=== PATIENT | female | born 1990 | race Hispanic/Latino ===

== ENCOUNTER 2020-03-06 16:40 | Emergency (ER) | payer OTHER ==
[2020-03-06 17:13] LABS: #Basophils 0.1 thou/uL (0.0-0.2); #Eosinphils 0.1 thou/uL (0.0-0.7); #Lymphocytes 2.3 thou/uL (1.20-3.40); #Monocytes 0.4 thou/uL (0.11-0.59); #Neutrophils 6.6 thou/uL (1.40-6.50); %Basophils 0.9 % (0.0-1.0); %Eosinophils 0.9 % (0.0-10.0); %Lymphocytes 23.8 % (21.0-51.0); %Monocytes 4.6 % (0.0-10.0); %Neutrophils 69.7 % (42.0-75.0); Hemoglobin 14.3 g/dL (12.0-16.0); Mean Corpuscular HGB CONC 33.7 g/dL (32.0-36.0); Mean Corpuscular Hemoglobin 28.6 pg (27.0-31.0); Mean Corpuscular Volume 84.9 fL (78.0-98.0); Mean Platelet Volume 7.8 fL (7.4-10.4); Platelet Count 287 thou/uL (130-400); RBC Distribution Width 13.2 % (11.5-14.5); Red Blood Cell (RBC) Count 5.02 mill/uL (4.20-5.40); White Blood Cell (WBC) Count 9.5 thou/uL (4.8-10.8)
[2020-03-06 17:37] LABS: ALT (SGPT) 24 U/L (8-55); AST (SGOT) 12 U/L (5-34); Alkaline Phosphatase 79 U/L (40-110); Anion Gap 13 mmol/L (10-20); BUN (Urea Nitrogen) 8 mg/dL (7.0-18.7); Bilirubin, Total 0.2 mg/dL (0.2-1.2); Calc. Creatinine Clearance 0 mL/min (70-130); Calcium 9.5 mg/dL (7.8-10.44); Carbon Dioxide 24 mmol/L (22-29); Chloride 103 mmol/L (98-107); Estimated GFR-MDRD Greater than 90; Globulin 3.7 g/dL (2.4-3.5); Glucose 86 mg/dL (70-105); Potassium 3.7 mmol/L (3.5-5.1); Protein, Total 7.7 g/dL (6.0-8.3); Sodium 136 mmol/L (136-145)
[2020-03-06] MEDS ORDERED: Acetaminophen 500 MG TAB ONE (20:20)
[2020-03-06] MEDS ORDERED: Ondansetron PF 4 MG/2 ML Vial ONE (20:42)
[2020-03-06 20:44] LABS: Bacteria/HPF None Seen HPF (None Seen); Bilirubin Negative (Negative); Blood, Urine Negative (Negative); Clarity Clear (Clear); Glucose, Urine (Dipstick) Normal (Negative); Leukocyte 250 Leu/uL (Negative); Nitrite Negative (Negative); Protein, Urine (Dipstick) 20 mg/dL (Neg-Trace); RBC/HPF 0-3 HPF (0-3); Urobilinogen Normal mg/dL (Less than 2)
== END 2020-03-06 21:54 | disposition home or self-care (01) ==
LOC: ERS 16:40
DX: O21.0 Mild hyperemesis gravidarum (principal); Z3A.09 9 weeks gestation of pregnancy; O99.511 Diseases of the respiratory system complicating pregnancy, first trimester
CPT/HCPCS: 36415; 80053; 81003; 81015; 84702; 85025; 86900; 86901; 96361; 96374; J2405

== ENCOUNTER 2020-06-09 23:46 | Day surgery (SDC) | payer OTHER ==
[2020-06-10 00:05] VITALS: BMI 37.5
[2020-06-10] MEDS ORDERED: hydrALAZINE 20 MG/ML VIAL SLOW IVP PRN (00:30)
--- NOTE | 2020-06-10 00:34 | PDOC.BPN ---
- Brief Progress Note Encounter Date: 06/10/20 Encounter Time: 00:30 OBGYN Attending Patient seen by me Please see full resident note Patient is a 29 yo (2 term deliveries and 1 delivery at 23 weeks...demised). here fo pink dsch with wipening. No active VB, no LOF, no feveres, had sex last 24 hrs. Good FM, no fevers. Past Medical Hx: none Past Surgical HX: none MEDS: Progesterone weekly IM Allergy: none OB HX: 2 SVDs with one joey-viable loss PHYSICAL: VSS afebrile NAD no evidence LOF No VB FHTs 1402, no CTX Assesment and plan: Possible postcoital dsch...will do full eval based on HX: 1. TVUS CX length 2. as screen although I do not suspect LOF 3. Continue progesterone if DC's home
--- NOTE | 2020-06-10 00:44 | PDOC.FPROB ---
FMR OB H&P: HPI - History of Present Illness Chief Complaint: pink discharge Indentification: 29 yo at 23.0 wga History of Present Illness: Patient here complaining of pink discharge at approximately 23:30 last night after having intercourse. She noticed it on toilet paper and denies drops of blood into toilet or passing clots. Had some mild cramping which have resolved. Otherwise, no other loss of fluid. Primary Care Physician: RUBA Banerjee FMR OB H&P: Current - Care : 5 Para: 2111 Gestational age: 23.0 Due date: 10/07/2020 Course/Complications: On IM progesterone, hx of IUFD at 23.0 wga - OB Labs Blood type: unknown RH: unknown Antibody Screen: unknown HIV: unknown RPR: unknown HepBsAg: unknown Quad screen: unknown Gonorrhea: unknown Chlamydia: unknown GBS: unknown FMR OB H&P: History - Past Medical History PMH: Asthma - OB History OB History: 2 vaginal deliveries at term. 1 IUFD at 23 wga 1 SAB at 10 wks - V[employer] ARTIST History V[employer] ARTIST History: Denies STIs. - Surgical History Sx History: D&C after SAB. - Social History Social History: Denies smoking, drinking, drugs. - Family History Family History: On her mother's side: hypothyroidism, diabetes, HTN FMR OB H&P: Medications - Current Allergies/Adverse Reactions: Allergies Allergy/AdvReac Type Severity Reaction Status Date / Time No Known Drug Allergies Allergy Verified 06/10/20 00:05 FMR OB H&P: ROS - Review of Systems General: denies: fever/chills, fatigue Eyes: denies: vision changes ENT: denies: nasal congestion, sore throat Cardiovascular: denies: chest pain, edema Respiratory: denies: cough, shortness of breath Gastrointestinal: reports: nausea, vomiting. denies: abdominal pain, diarrhea Genitourinary (Female): reports: vaginal discharge. denies: dysuria, contractions Musculoskeletal: denies: pain Neurologic: denies: weakness Integumentary: denies: rash Hematologic/Lymphatic: denies: prolonged or excessive bleeding Psychological: denies: depression, anxiety FMR OB H&P: Vital Signs - Maternal Vital signs: BP 113/82 HR 86 Temp 98.2 F - Heart Tones Baseline: 140 (doppler) FMR OB H&P: Physical Exam - Physical Exam General: NAD, awake, alert and oriented HEENT: normocephalic and atraumatic, MMM, no scleral icterus, grossly normal vision, grossly normal hearing Heart: RRR, normal S1/S2, no murmurs/rubs/gallops General: CTAB, no respiratory distress Abdomen: soft, gravid, non-tender Neurological: no focal deficit Skin: no rash Lymphatic: no unusual bruising or bleeding Psychiatric: intact recent and remote memory, normal mood and affect FMR OB H&P: A/P - Problem List (1) High risk due to history of labor Current Visit: No Status: Acute Code(s): O09.219 - SUPRVSN OF PREG W HISTORY OF PRE-TERM LABOR, UNSP TRIMESTER Qualifiers: Trimester: third trimester Qualified Code(s): O09.213 - Supervision of with history of pre-term labor, third trimester Comment: Patient presented in labor at term, progressing well, status post AROM with clear fluid. Continue current management. (2) Intrauterine normal Current Visit: No Status: Acute Code(s): Z34.90 - ENCNTR FOR SUPRVSN OF NORMAL , UNSP, UNSP TRIMESTER Qualifiers: Trimester: third trimester Qualified Code(s): Z34.93 - Encounter for supervision of normal , unspecified, third trimester Disposition: await TVUS results and amnisure. Discussion: Date/Time: 06/10/20 0041 29 yo at 23.0 wga [place] discharge - history of IUFD at 23 wks - likely postcoital - however, will assess cervical length w/ TVUS - Amnisure pending - if amnisure negative and TVUS w/ normal cervical length, will d/c home. This H&P was discussed with Dr. Schreiber, who agrees with the above documentation and plan. Signature: Elsa Acuna MD PGY2
[2020-06-10 02:04] LABS: Amnisure Internal Control QC ACCEPTABLE (ACCEPTABLE)
[2020-06-10 02:13] LABS: Amnisure Test No Membranes Rupture (No Rupture)
--- NOTE | 2020-06-10 02:40 | PDOC.BPN ---
- Brief Progress Note Preliminary ultrasound with cervix >3 cm. Amnisure neg. Will d/c home. RTC for f/u w/ PCP. return precautions given.
--- NOTE | 2020-06-10 11:09 | ULT ---
PRELIMINARY REPORT/[facility]/EMERGENCY AFTER HOURS PROCEDURE: EXAM: US Obstetrical, Complete >14 weeks. CLINICAL HISTORY: HX: PINK DISCHARGE AT 23WK, PREVIOUS DELIVERY, EVAL CERVICAL LENGTH. SEE NOTES ON LAST IMAGE. THANKS TECHNIQUE: Transabdominal imaging of the maternal pelvis and a > 14 week gestation with image documentation. COMPARISON: None provided. FINDINGS: FETUS: There is a single living intrauterine gestation, estimated gestational age 22 weeks 5 days POSITION: position is breech. HEART RATE: The heart rate is 135 beats per minute. BIOMETRICS: Based on composite biometry, the estimated gestational age by ultrasound is 22 weeks 5 days. T he estimated weight is 527 g ANATOMIC SURVEY: The visualized anatomy is unremarkable. PLACENTA: The placenta is located posterior. No sonographic evidence for previa or abruption. AMNIOTIC FLUID: Within normal limits. CERVIX: Closed. Unremarkable as visualized. Measures 3.7 cm IMPRESSION: Single viable intrauterine . No acute abnormality. Cervical length of 3.7 cm ELECTRONICALLY SIGNED BY: Saurav Hunt MD Jun 10, 2020 2:12:48 AM CDT This report is intended for review by the ordering physician only, in accordance of law. If you recei ve this report in error, please call [facility] at [phone]. FINAL REPORT OB ULTRASOUND FINDINGS: Viable intrauterine . Cervical length recorded at 3.8 cm. I am in agreement with the preliminary report. POS: AGW
== END 2020-06-10 02:46 | disposition home or self-care (01) ==
LOC: L&D/OP 23:46
PROVIDERS: ATTEND Obstetrics & Gynecology
DX: O99.89 Other specified diseases and conditions complicating pregnancy, childbirth and the puerperium (principal); N89.8 Other specified noninflammatory disorders of vagina; O09.292 Supervision of pregnancy with other poor reproductive or obstetric history, second trimester; O09.212 Supervision of pregnancy with history of pre-term labor, second trimester; Z3A.23 23 weeks gestation of pregnancy
CPT/HCPCS: 76815; 84112

== ENCOUNTER 2020-09-10 15:26 | Day surgery (SDC) | payer OTHER ==
[2020-09-10 15:57] VITALS: BMI 37.0
[2020-09-10] MEDS ORDERED: hydrALAZINE 20 MG/ML VIAL SLOW IVP PRN (16:48)
--- NOTE | 2020-09-10 17:40 | PRG ---
DATE OF SERVICE: 09/10/2020 PRIMARY OB: Deisy Durant CNM CHIEF COMPLAINT: Abdominal pain. HISTORY OF PRESENT ILLNESS: The patient is a 30-year-old, G6, P2 female with an intrauterine at 36 weeks and a day, who is presenting to Labor and Delivery from work after being sent by her employer for abdominal pains. The patient reports that she is having abdominal pains that are contraction like. She is unable to tell me how often they are happening or how long they are occurring. She feels like maybe a minute or two, and at some point in time, she believes they are about 5 minutes apart. The patient denies any vaginal bleeding or leakage of fluid. She denies fever, cough, headache, chest pain, shortness of breath. She reports daily vomiting in the morning. Denies diarrhea or constipation. Denies new rashes, hip problems, knee problems, muscle weakness. Denies vaginal bleeding, leakage of fluid, urinary urgency or frequency. PAST MEDICAL HISTORY: Asthma and anemia. PAST SURGICAL HISTORY: Negative. ALLERGIES: NO KNOWN DRUG ALLERGIES. MEDICATIONS: Albuterol as needed, which she has not taken this . OB LABORATORY DATA: Unavailable at time of dictation. REVIEW OF SYSTEMS: Per HPI. PHYSICAL EXAMINATION: VITAL SIGNS: Blood pressure is 107/63, heart rate of 96, respiratory rate of 18, saturating 99% on room air, and temperature 98.6. GENERAL: She appears to be in no acute distress. She is alert, oriented, cooperative, and pleasant to interact with. HEAD: Normocephalic, atraumatic. LUNGS: Clear to auscultation bilaterally. HEART: Regular rate and rhythm. ABDOMEN: Gravid and soft. She does have some tenderness with deviation of the uterus eliciting the pain that she has been experiencing. At this point, the patient did report that her pains that she has been feeling are worse with activity and movement such as getting up off the floor and bending over. CERVICAL: Per nursing staff is 1, 50, -2 station. DIAGNOSTIC STUDIES: heart tracing shows the fetus with a baseline in the 140s with moderate long-term variability, positive 15 x 15 accelerations, no decelerations. Tocometer shows some irritability, but no identifiable regular contraction pattern. ASSESSMENT AND PLAN: The patient is a 30-year-old, G6, P2 female with an intrauterine at 36 weeks and a day, presenting with abdominal pains. The patient has no evidence of labor. Fetus has a reactive strip and category 1 tracing. The patient is being discharged home. She has instructions to follow up with her primary OB as scheduled. Job ID: [id number]
== END 2020-09-10 17:00 | disposition home health service (06) ==
LOC: L&D/OP 15:26
PROVIDERS: ATTEND Obstetrics & Gynecology
DX: O99.891 Other specified diseases and conditions complicating pregnancy (principal); R10.9 Unspecified abdominal pain; O21.2 Late vomiting of pregnancy; O99.513 Diseases of the respiratory system complicating pregnancy, third trimester; J45.909 Unspecified asthma, uncomplicated; Z3A.36 36 weeks gestation of pregnancy
CPT/HCPCS: 59025; 76815; 99283

== ENCOUNTER 2020-10-02 09:38 | Day surgery (SDC) | payer OTHER ==
[2020-10-02 10:20] VITALS: BP 113/70; TEMP 98.1; BMI 30.8
[2020-10-02] MEDS ORDERED: hydrALAZINE 20 MG/ML VIAL SLOW IVP PRN (10:28)
--- NOTE | 2020-10-02 11:43 | ULT ---
ULTRASOUND BIOPHYSICAL PROFILE: DATE: 10/02/2020 HISTORY: 30-year-old female in third trimester with decreased movement FINDINGS: breathin tone: 2 movement: 2 Amniotic fluid volume: 2 lie: Vertex RONNY: 11 cm heart rate: 127-140 bpm IMPRESSION: Normal biophysical profile score of 8 out of 8, excluding the nonstress test.
--- NOTE | 2020-10-02 12:28 | SS ---
DATE OF ADMISSION: 10/02/2020 DATE OF DISCHARGE: 10/02/2020 LABOR AND DELIVERY TRIAGE NOTE REGULAR PROVIDER: Deisy Durant CNM. EVALUATING PHYSICIAN: Judah Gill MD CHIEF COMPLAINT: Decreased movement reported this morning. HISTORY OF PRESENT ILLNESS: Ms Figueroa is a 30-year-old G6, P2-1-2-2 with an estimated date of confinement of 10/07/2020, who presents after calling [facility] this morning complaining of passing her mucus plug. She was asked at that time whether she was feeling her baby move. She states that she had not felt that this morning, but that it was not unusual for her. She was instructed to go to Labor and delivery right away. She denies ruptured membranes or vaginal bleeding at this time. She endorses movement in Labor and Delivery now. Her care has been with Chanelle Durant. PAST OBSTETRICAL HISTORY: Includes a vaginal delivery at 27 weeks in which that baby . She has had two vaginal deliveries at term since that time, and two spontaneous miscarriages. PAST MEDICAL HISTORY: Includes asthma and anemia. PAST SURGICAL HISTORY: D and C. CURRENT MEDICATIONS: None. ALLERGIES: NO KNOWN ALLERGIES. SOCIAL HISTORY: She denies tobacco, alcohol, or drug use. FAMILY HISTORY: Unremarkable. REVIEW OF SYSTEMS: Denies nausea, vomiting, fever, chills, ruptured membranes, or vaginal bleeding. She presently reports movement here in Labor and Delivery. PHYSICAL EXAMINATION: VITALS: In triage, her vital signs are stable. She is afebrile. GENERAL: She is pleasant and in no acute distress. ABDOMEN: Soft, nontender, and gravid. PELVIC: Deferred. heart rate tracing is reassuring with spontaneous accelerations. No decelerations are seen. No evidence of regular contractions are seen. Biophysical profile is performed and returns 8/8. Her RONNY is 11. ASSESSMENT: 1. A 39 and 2/7th week intrauterine . 2. Reassuring testing here in Labor and Delivery this morning. PLAN: The patient was dismissed to home. The nature of movement was reviewed with her in detail, and kick counts were discussed. She states that she has an appointment with Chanelle Durant this week. Labor precautions were reviewed. Job ID: [id number]
== END 2020-10-02 11:48 | disposition home health service (06) ==
LOC: L&D/OP 09:38
PROVIDERS: ATTEND Obstetrics & Gynecology
DX: O36.8130 Decreased fetal movements, third trimester, not applicable or unspecified (principal); O99.013 Anemia complicating pregnancy, third trimester; D64.9 Anemia, unspecified; O99.513 Diseases of the respiratory system complicating pregnancy, third trimester; J45.909 Unspecified asthma, uncomplicated; O09.213 Supervision of pregnancy with history of pre-term labor, third trimester; O09.293 Supervision of pregnancy with other poor reproductive or obstetric history, third trimester; Z3A.39 39 weeks gestation of pregnancy
CPT/HCPCS: 76819; 99282

== ENCOUNTER 2020-10-03 19:22 | Inpatient (IN) | payer OTHER, SELFPAY ==
[2020-10-03 19:51] VITALS: BMI 36.7
[2020-10-03] MEDS ORDERED: hydrALAZINE 20 MG/ML VIAL SLOW IVP PRN (20:05)
[2020-10-03] MEDS ORDERED: Lidocaine 1% (PF) 30 ML VIAL SC PRN (20:05)
[2020-10-03] MEDS ORDERED: HYDROcodone/Acetaminophen 5/325 mg Tablet PO PRN (20:05)
[2020-10-03] MEDS ORDERED: Misoprostol 200 MCG TAB PR PRN (20:05)
[2020-10-03] MEDS ORDERED: Ondansetron PF 4 MG/2 ML Vial IVP PRN (20:05)
[2020-10-03] MEDS ORDERED: NS / Oxytocin 40 units/1000ml 1,000 ML IV PRN (20:05)
[2020-10-03] MEDS ORDERED: Ibuprofen 800 MG TAB PO PRN (20:05)
[2020-10-03] MEDS ORDERED: Lactated Ringer's 1,000 ML IV SCH (20:15)
[2020-10-03] MEDS ORDERED: Penicillin G Potassium 5 MILL.UNITS in Sodium Chloride 0.9% 100 ML IVPB SCH (20:15)
[2020-10-03] MEDS ORDERED: Butorphanol Tartrate 1 MG/ML VIAL ONE (20:19)
[2020-10-03] MEDS ORDERED: Butorphanol Tartrate 1 MG/ML VIAL SLOW IVP PRN (21:03)
[2020-10-03 21:06] LABS: Hemoglobin 9.8 g/dL (12.0-16.0); Mean Corpuscular HGB CONC 31.7 g/dL (32.0-36.0); Mean Corpuscular Hemoglobin 21.8 pg (27.0-31.0); Mean Corpuscular Volume 68.8 fL (78.0-98.0); Mean Platelet Volume 9.9 fL (7.4-10.4); Platelet Count 276 thou/uL (130-400); RBC Distribution Width 15.7 % (11.5-14.5); Red Blood Cell (RBC) Count 4.51 mill/uL (4.20-5.40); White Blood Cell (WBC) Count 13.4 thou/uL (4.8-10.8)
[2020-10-03 21:37] LABS: Syphilis Antibody Nonreactive (Nonreactive); Syphilis Antibody Index 0.05 S/CO (<1.00 Non-Reactive)
--- NOTE | 2020-10-03 23:41 | PDOC.LDHP ---
Labor and Delivery H&P Chief complaint: contractions HPI: Patient started having painful contractions around 1999. Denies LOF. Affirms movement. no other concerns. Current gestational age (weeks): 39 Due date: 10/07/20 Grav: 6 Para: 3 (2121) OB History Details: 2008 @ 24 week. demise 2014 @ 40 weeks 2015 @ 40 weeks. Current complications: none Abnormal US findings: No Past Medical History: Obesity Current medications: pre- vitamins, other ([place] IM every week until 37 weeks.) Previous surgical history: dilation and curettage Allergies/Adverse Reactions: Allergies Allergy/AdvReac Type Severity Reaction Status Date / Time No Known Drug Allergies Allergy Verified 10/03/20 19:45 Social history: none - Physical Exam Vital signs reviewed and normal: yes General: breathing through contractions Lungs: nonlabored breathing Abdomen: gravid FHT: category 2 [place] contractions every: Q1.5-2 mins - Vaginal Exam cm dilated: 8 Effacement: 100% Station: -1 - OB Labs Blood type: B RH: positive Antibody Screen: negative HIV: negative RPR: negative HEPSAg: negative 1 hour GCT: negative GBS: positive Urine drug screen: negative Rubella: immune - Assessment L&D Assessment: term patient in labor - Plan Plan: admit to L&D, GBS antibiotic prophylaxis, informed consent obtained -: Anticipate
[2020-10-04] MEDS: NS w/ Oxytocin 30 units 500 ML IVPB SCH ×2 (00:05→00:49)
[2020-10-04] MEDS ORDERED: Methylergonovine 0.2 MG TAB ONE (00:09)
--- NOTE | 2020-10-04 00:32 | PDOC.OPDEL ---
OB Operative/Delivery Note Delivery Dr/Surgeon: Bhargav Pre-Delivery Diagnosis: active labor Procedure/Post Delivery Dx: spontaneous vaginal delivery Weeks gestation: 39 Anesthesia: local - Findings A Sex: female Weight: 6 lb 12 oz - 1 min: 8 - 5 min: 9 - Additional Findings/Plan Placenta delivered: spontaneous Repaired Obstetrical Laceration: 2nd degree Estimated blood loss: 1320mL QBL Compilations/Other Findings: PPH. hemorrghaing after delivery. Immediate IV pitocin started. I used bimanual compression until uterotonic were at bedside. Cytotec 800 mcg NM given. Methergine .25mg IM given. Dr. Taylor was paged for back up. Bi manual compression was continued until uterine tone was achieved. An In & Out Cath was used to drain the bladder with approximately 200 ml of urine output. At this time bleeding had slowed. A second IV was started and a stat CBC drawn at the time of IV. Pt was stable. Post delivery plan: routine recovery
[2020-10-04 00:50] LABS: HBSAg Index 0.15 S/CO (0-0.99); Hep B Surf Ag Non-Reactive S/CO (NonReactive)
[2020-10-04] MEDS ORDERED: Penicillin G 2.5 MILL.units 2.5 MILL.UNITS in Premix Bag 1 BAG IVPB SCH (01:00)
[2020-10-04] MEDS ORDERED: HYDROcodone/Acetaminophen 5/325 mg Tablet PO PRN ×2 (01:16)
[2020-10-04] MEDS ORDERED: Methylergonovine 0.2 MG/ML VIAL IM PRN (01:16)
[2020-10-04] MEDS ORDERED: hydrALAZINE 20 MG/ML VIAL SLOW IVP PRN (01:16)
[2020-10-04] MEDS ORDERED: Bisacodyl 10 MG SUPP PR PRN (01:16)
[2020-10-04] MEDS ORDERED: Benzocaine-Menthol 82.5 ML CAN TOP PRN (01:16)
[2020-10-04] MEDS ORDERED: NS / Oxytocin 40 units/1000ml 1,000 ML IV SCH (01:16)
[2020-10-04] MEDS ORDERED: Milk Of Magnesia 30 ML UDCUP PO PRN (01:16)
[2020-10-04 01:39] LABS: SARS-CoV-2 MS2 Positive; SARS-CoV-2 N Gene Negative; SARS-CoV-2 S Gene Negative; SARS-CoV-2 by NAA Not Detected (NotDetected); SARS-CoV-2 orf1ab Negative
[2020-10-04 01:46] LABS: #Lymphocytes 1.2 thou/uL (1.20-3.40); #Monocytes 0.5 thou/uL (0.11-0.59); #Neutrophils 13.5 thou/uL (1.40-6.50); %Basophils 0.1 % (0.0-1.0); %Eosinophils 0.1 % (0.0-10.0); %Monocytes 3.2 % (0.0-10.0); %Neutrophils 88.5 % (42.0-75.0); Hemoglobin 9.9 g/dL (12.0-16.0); Mean Corpuscular HGB CONC 31.1 g/dL (32.0-36.0); Mean Corpuscular Hemoglobin 21.5 pg (27.0-31.0); Mean Corpuscular Volume 68.9 fL (78.0-98.0); Mean Platelet Volume 9.9 fL (7.4-10.4); Platelet Count 282 thou/uL (130-400); RBC Distribution Width 15.6 % (11.5-14.5); Red Blood Cell (RBC) Count 4.62 mill/uL (4.20-5.40); White Blood Cell (WBC) Count 15.2 thou/uL (4.8-10.8)
[2020-10-04] MEDS: Methylergonovine 0.2 MG TAB PO SCH ×6 (05:45→21:37)
[2020-10-04] MEDS: Ibuprofen 800 MG TAB PO SCH ×3 (07:16→21:38)
[2020-10-04] MEDS: Docusate Calcium (SURFAK) 240 MG CAP PO SCH ×2 (07:37→21:37)
[2020-10-04] MEDS: Ferrous Sulfate 325 MG TAB PO SCH ×2 (07:37→17:31)
[2020-10-04] MEDS: Prenatal Vitamin 1 TAB PO SCH (07:37)
[2020-10-04] MEDS ORDERED: Adacel (T-DAP) 0.5 ML SYRINGE IM ONE (09:00)
--- NOTE | 2020-10-04 18:05 | PDOC.PP ---
Post Progress Note Post Day #: 1 Subjective: Pt is doing well. bottle feeding. they will not let infant discharge until Sat. She is feeling well, up to urinate without dizziness or syncope PO intake tolerated: yes Flatus: yes Ambulation: yes Vital Signs (12 hours) Temp Pulse Resp BP Pulse Ox 10/04/20 17:06 98.9 F 90 20 96/51 L 96 10/04/20 12:02 98.7 F 91 20 107/60 98 10/04/20 08:24 98.9 F 82 20 103/56 L 98 Weight Weight 188 lb - Physical Examination General: NAD Respiratory: non-labored breathing Skin: no rash Neurological: no gross focal deficits Psychiatric: A&Ox3, normal affect Result Diagrams: 10/04/20 01:19 Additional Labs: Post Labs Hep Bs Antigen Non-Reactive S/CO (NonReactive) 10/03/20 20:41 Blood Type B POSITIVE 10/03/20 20:41 (1) (spontaneous vaginal delivery) Code(s): O80 - ENCOUNTER FOR FULL-TERM UNCOMPLICATED DELIVERY Status: Acute (2) Positive GBS test Code(s): B95.1 - STREPTOCOCCUS, GROUP B, CAUSING DISEASES CLASSD ELSWHR Status: Acute (3) hemorrhage Code(s): O72.1 - OTHER IMMEDIATE HEMORRHAGE Status: Acute - Assessment/Plan A: G6 now P4 s/p complicated by PPH (1330mL) with NML exam P: recheck hg/Hct in AM routine care.
[2020-10-05 00:38] VITALS: TEMP 98.6
[2020-10-05] MEDS: Methylergonovine 0.2 MG TAB PO SCH (01:10)
[2020-10-05] MEDS: Ibuprofen 800 MG TAB PO SCH (05:48)
[2020-10-05 06:40] LABS: Hemoglobin 8.4 g/dL (12.0-16.0); Platelet Count 257 thou/uL (130-400)
[2020-10-05 08:09] VITALS: BP 84/50
[2020-10-05] MEDS: Docusate Calcium (SURFAK) 240 MG CAP PO SCH (08:24)
[2020-10-05] MEDS: Prenatal Vitamin 1 TAB PO SCH (08:24)
[2020-10-05] MEDS: Ferrous Sulfate 325 MG TAB PO SCH (08:24)
--- NOTE | 2020-10-08 03:33 | PQF ---
CLINICAL DOCUMENTATION CLARIFICATION FORM: Dear : Sigifredo Taylor Date / Time: 10/08/20331 Please exercise your independent, professional judgment in responding to the clarification form. Clinical indicators are provided on the bottom of this form for your review Please check appropriate box(es): [ ] Associated Diagnosis: Acute Blood loss Anemia [ x ] Abnormal laboratory findings not clinically significant [ ] Other diagnosis [ ] Unable to determine In addition, please specify: Present on Admission (POA): [ ] Yes [ ] No [ ] Unable to determine Physician Signature: Date/Time: For continuity of documentation, please document condition throughout progress notes and discharge summary. Thank You. To be completed by CDI/Coding staff for physician review: Present Clinical Indicators - Signs / Symptoms / Labs Results and Location in Medical Record [x] RBC 4.51, Hgb 9.8, Hct 31.0 Laboratory 10/03 [x] RBC 4.62, Hgb 9.9, Hct 31.9 Laboratory 10/04 [x] Hgb 8.4, Hct 27.6 Laboratory 10/05 [x] BP 95/49, Pulse 86, Resp 17, Temp 97.9 Vital sign 010/7 [x] Estimated blood loss 1320 ml L&D note 10/03 [facility] 10/04 [x] Uterotonic with bleeding L&D note 10/03 [facility] 10/04 Present Risk Factors Results and Location in Medical Record [x] 39 weeks gestation L&D note 10/03 [facility] 10/04 [x] 2ng degree laceration L&D note 10/03 [facility] 10/04 [x] s/p L&D note 10/03 [facility] 10/04 Present Treatments Results and Location in Medical Record [x] Series of Hgb and Hct labs Laboratory 10/03-10/05 [x] Ferrous Sulfate 325 mg oral MAR 10/04 [x] Lactated Ringers 1L NOV 26 CDS/[employer] Signature: Nan Lockhart Phone #: ext [phone] Date/Time: 10/08/20331 This is a permanent part of the Medical Record [facility]
== END 2020-10-05 13:15 | disposition home or self-care (01) | DRG 807 ==
LOC: L&D/OP 19:22 → L&D 20:05 → 3SW 10-04 03:04
PROVIDERS: ADMIT Obstetrics & Gynecology; ATTEND Obstetrics & Gynecology
PROC: 10E0XZZ Delivery of Products of Conception, External Approach (ICD-10-PCS; principal; 2020-10-03)
PROC: 0KQM0ZZ Repair Perineum Muscle, Open Approach (ICD-10-PCS; 2020-10-03)
DX: O99.824 Streptococcus B carrier state complicating childbirth (principal); Z37.0 Single live birth; Z3A.39 39 weeks gestation of pregnancy; Z20.822 Contact with and (suspected) exposure to COVID-19; O70.1 Second degree perineal laceration during delivery; O72.1 Other immediate postpartum hemorrhage
CPT/HCPCS: 36415; 85014; 85018; 85025; 85027; 85049; 86780; 86850; 86900; 86901; 87340; 87635; 99285; J0595; J2210; J2540; J2590; J3490; U0003

== ENCOUNTER 2021-07-25 10:39 | Emergency (ER) | payer MEDICAID, SELFPAY ==
[2021-07-25] MEDS ORDERED: Acetaminophen 325 MG TAB ONE (13:16)
== END 2021-07-25 13:23 | disposition home or self-care (01) ==
LOC: ERS 10:39
DX: J02.9 Acute pharyngitis, unspecified (principal); J45.909 Unspecified asthma, uncomplicated
CPT/HCPCS: 87081; 87430; 99283

== ENCOUNTER 2023-01-28 15:51 | Emergency (ER) | payer OTHER, SELFPAY ==
[2023-01-28 17:23] LABS: #Eosinphils 0.2 thou/uL (0.0-0.7); #Lymphocytes 2.5 thou/uL (1.20-3.40); #Monocytes 0.5 thou/uL (0.11-0.59); #Neutrophils 5.2 thou/uL (1.40-6.50); %Basophils 0.4 % (0.0-1.0); %Eosinophils 2.4 % (0.0-10.0); %Lymphocytes 29.3 % (21.0-51.0); %Monocytes 5.8 % (0.0-10.0); %Neutrophils 62.1 % (42.0-75.0); Hemoglobin 10.3 g/dL (12.0-16.0); Mean Corpuscular HGB CONC 31.3 g/dL (32.0-36.0); Mean Corpuscular Hemoglobin 23.5 pg (27.0-31.0); Mean Platelet Volume 8.4 fL (7.4-10.4); Platelet Count 294 10x3/uL (130-400); RBC Distribution Width 15.4 % (11.5-14.5); White Blood Cell (WBC) Count 8.4 10x3/uL (4.8-10.8)
[2023-01-28 17:41] LABS: BHCG - Serum POSITIVE (NEGATIVE); Pregs Control Background? CLEAR/WHITE (CLR/WHITE); Pregs Control Bar Appear? YES (CONTROL BAR)
[2023-01-28 17:41] LABS: ALT (SGPT) 27 U/L (8-55); AST (SGOT) 19 U/L (5-34); Albumin 3.8 g/dL (3.5-5.0); Alkaline Phosphatase 64 U/L (40-110); Anion Gap 14 mmol/L (10-20); BUN (Urea Nitrogen) 9 mg/dL (7.0-18.7); Bilirubin, Total 0.2 mg/dL (0.2-1.2); Calc. Creatinine Clearance 0 mL/min (70-130); Calcium 8.7 mg/dL (7.8-10.44); Carbon Dioxide 22 mmol/L (22-29); Chloride 106 mmol/L (98-107); Estimated GFR 104; Globulin 3.4 g/dL (2.4-3.5); Glucose 93 mg/dL (70-105); Potassium 3.5 mmol/L (3.5-5.1); Protein, Total 7.2 g/dL (6.0-8.3); Sodium 138 mmol/L (136-145)
[2023-01-28 17:46] LABS: MDiff Complete? YES; Microcytosis SLIGHT = 6-15 cells (100X) (0-5/hpf); Platelet Morphology Comment Appears Adequate
[2023-01-28 20:59] LABS: GC by PCR, EndoCx Swab Not Detected (NotDetected)
== END 2023-01-28 20:06 | disposition home or self-care (01) ==
LOC: ERS 15:51
DX: O20.0 Threatened abortion (principal); Z3A.01 Less than 8 weeks gestation of pregnancy
CPT/HCPCS: 36415; 76856; 84702; 84703; 86900; 86901; 87480; 87510; 87591; 87660

== ENCOUNTER 2023-01-31 07:39 | Emergency (ER) | payer SELFPAY ==
[2023-01-31] MEDS ORDERED: Acetaminophen 500 MG TAB ONE (09:21)
== END 2023-01-31 10:36 | disposition home or self-care (01) ==
LOC: ERS 07:39
DX: O20.0 Threatened abortion (principal); Z3A.01 Less than 8 weeks gestation of pregnancy
CPT/HCPCS: 36415; 76856; 84702

== ENCOUNTER 2024-04-01 08:24 | Day surgery (SDC) | payer MEDICAID ==
[2024-04-01] MEDS ORDERED: Acetaminophen 500 MG TAB ONE (08:40)
[2024-04-01] MEDS: Acetaminophen 500 MG TAB PO SCH (08:41)
[2024-04-01 09:16] VITALS: BP 109/59; TEMP 98.2
[2024-04-01] MEDS: Iron Sucrose Complex 500 MG in Sodium Chloride 0.9% 250 ML 250 ML IVPB SCH (09:35)
== END 2024-04-01 14:32 | disposition home or self-care (01) ==
LOC: ONC/OP 08:24
PROVIDERS: ATTEND Family Medicine
DX: O99.013 Anemia complicating pregnancy, third trimester (principal)
CPT/HCPCS: 96365; 96366; J1756; J7050

== ENCOUNTER 2025-07-01 12:26 | Emergency (ER) | payer BC, MEDICAID ==
[2025-07-01] MEDS ORDERED: Ketorolac Tromethamine 30 MG (1 mL) VIAL ONE (13:00)
== END 2025-07-01 13:38 | disposition home or self-care (01) ==
LOC: ERS 12:26
DX: S63.502A Unspecified sprain of left wrist, initial encounter (principal); X58.XXXA Exposure to other specified factors, initial encounter
CPT/HCPCS: 96372; 99283; J1885